=== PATIENT | male | born 1960 ===

== ENCOUNTER 2025-07-04 16:45 | Emergency (ER) | payer MEDICARE, SELFPAY ==
--- NOTE | ~2025-07-04 | CT_ITS ---
CLINICAL HISTORY: R neck pain rad LUE CT cervical spine without contrast Comparison: None provided Findings: Straightening of the cervical lordosis. Minimal grade 1 anterolisthesis at C6-7. Cervical vertebral bodies maintain normal height. No acute fracture. Craniocervical junction is intact. Multilevel degenerative disc disease most significantly involving C4-5, C5-6 and C6-7. At C4-5 mild spondylotic disc bulge and uncovertebral hypertrophy with [id number] bilateral foraminal stenosis. At C5-6 mild spondylotic disc bulge with mild right neural foraminal stenosis. At C6-7 mild spondylotic disc bulge with no significant stenosis. Prevertebral soft tissues within normal limits. Thyroid within normal limits. Lung apices are clear. IMPRESSION: 1. No acute findings. 2. Degenerative changes with [id number] bilateral foraminal stenosis at C4-5 and mild right neural foraminal stenosis at C5-6. This document has been electronically signed by: Kaia Hilario MD on 07/04/2025 20:21:23
[2025-07-04 16:49] VITALS: BP 168/88; PULSE 82; RESP 18; TEMP 36.9; O2SAT 96; BMI 27.7
--- NOTE | 2025-07-04 17:28 | ED.GENADULT ---
HPI - General Adult General Chief complaint: Neck Pain/Injury Stated complaint: Back Pain Time Seen by Provider: 07/04/25 19:22 Source: patient, family, RN notes reviewed and old records reviewed Mode of arrival: ambulatory Limitations: no limitations History of Present Illness ED Provider: Jing HORTON narrative: Patient is a 64 year old male with no known pmhx presenting today with a 2 month history of anterior neck pain that radiates down his arms into his hands. Pt states that it began on the right side and would come and go without any aggravating factors or trauma, but has now is becoming continuous and developing on his left side as well. Pt can reproduce the pain by pressing on his proximal collar bones. Denies numbness/tingling. Pt has tried Lidocaine patches and Ibuprofen with no relief of pain. Was seen at [facility] for the same pain about a month ago that thought it could be a pinched nerve, gave a medication for which the pt had no relief. Patient has full ROM of all extremities and no spinal tenderness. Related Data Previous Rx's ?Medication ?Instructions ?Recorded allopurinol 100 mg tablet 100 mg PO DAILY 90 days #90 tabs 04/29/23 cyclobenzaprine 10 mg tablet 10 mg PO TID PRN muscle spasm #20 07/04/25 tabs dexamethasone 4 mg tablet 4 mg PO BID #6 tabs 07/04/25 Allergies Allergy/AdvReac Type Severity Reaction Status Date / Time No Known Allergies Allergy Verified 07/04/25 16:52 Review of Systems Constitutional: Constitutional: Reports as per HPI, Denies chills, Denies fatigue, Denies fever(s), Denies headache(s) and Denies weakness ENT: Denies headache(s) and Denies neck pain Cardiovascular: Cardiovascular: Denies chest pain and Denies dyspnea Respiratory: Respiratory: Denies cough and Denies dyspnea Gastrointestinal: Gastrointestinal: Denies abdominal pain, Denies constipation and Denies vomiting Genitourinary: Genitourinary: Denies difficulty urinating and Denies dysuria Musculoskeletal: Musculoskeletal: Denies back pain, Denies limited range of motion, Denies neck pain, Denies numbness and Denies tingling Neurologic: Denies headache(s), Denies focal weakness, Denies numbness, Denies tingling, Denies paresthesias and Denies weakness Endocrine: Endocrine: Denies fatigue PMFSH Social History Social History Advance Directives: No Advance Directives Information Provided: No Physical Exam ED Vital Signs: Vital Signs - 24 hr 07/04/25 16:49 07/04/25 19:17 Temperature 98.5 F 97.9 F Pulse Rate 82 76 Respiratory Rate 18 18 Blood Pressure 168/88 H 137/82 Pulse Oximetry 96 96 Oxygen Delivery Method Room Air Room Air BMI result Body Mass Index 27.7 Const General: healthy appearing, comfortable, no acute distress, alert and awake Nutritional Appearance: well nourished Orientation/consciousness: patient oriented x3 HENMT Head: Yes normocephalic and Yes atraumatic Neck Neck: Yes full ROM Resp Effort & Inspection: normal respiratory effort, able to speak in complete sentences and not labored Back/Spine/Pelvis Cervical Spine: No Cervical spine tenderness Skin General skin exam: no rashes or lesions noted and elasticity normal Neuro General: patient oriented x3 and deep tendon reflexes 2+ bilaterally Cranial nerves: Yes Ability to bilaterally rotate head present and Yes Ability to bilaterally elevate shoulders present Cognition (Neuro): normal cognition Motor exam (neuro): 5/5 motor strength present throughout Extrem Other: Moving all extremities well without any obvious deformities. Tenderness to palpation of bilateral anterior neck/collarbone. General: Yes normal to inspection and Yes full ROM Right upper extremity: full ROM Left upper extremity: full ROM Course Course Course Narrative: This is a Rapid Medical Exam performed in triage by Lilly Lerma PA-C. Full HPI, ROS and PE to be performed by primary ED provider. 64-year-old male presenting to the ED c/o atraumatic right-sided neck pain radiating down RUE x5 months. Admits pain worse at night and with movement. Denies weakness, numbness, headache, vision change or loss, CVP at present PE: + mild right-sided reproducible trapezius muscle tenderness. No midline spinous tenderness. No appreciable weakness Plan: EKG, cervical spine CT Medical Decision Making Medical Decision Making MDM Narrative: 64-year-old male presents for evaluation of chronic neck pain. The patient has pain radiating to both of his arms, a CT scan of the cervical spine was ordered from triage. There was no evidence of traumatic injury. The patient has no symptoms of infection, no fever, chills. He is not an IV drug abuser. I have a low suspicion for cervical diskitis or osteomyelitis. Plan to treat the patient symptomatically and he will follow up with his outpatient providers. Differential Diagnosis Differential Diagnoses: The differential diagnosis associated with the presentation includes Cervical radiculopathy Spinal stenosis Brachial Plexus Injury Thoracic Outlet Syndrome SCM muscle Spasm Radiology Impression Discussion of test interpretation with radiology: I have reviewed the radiologist's reading. Radiologist Impression: Findings: Straightening of the cervical lordosis. Minimal grade 1 anterolisthesis at C6-7. Cervical vertebral bodies maintain normal height. No acute fracture. Craniocervical junction is intact. Multilevel degenerative disc disease most significantly involving C4-5, C5-6 and C6-7. At C4-5 mild spondylotic disc bulge and uncovertebral hypertrophy with [id number] bilateral foraminal stenosis. At C5-6 mild spondylotic disc bulge with mild right neural foraminal stenosis. At C6-7 mild spondylotic disc bulge with no significant stenosis. Prevertebral soft tissues within normal limits. Thyroid within normal limits. Lung apices are clear. IMPRESSION: 1. No acute findings. 2. Degenerative changes with [id number] bilateral foraminal stenosis at C4-5 and mild right neural foraminal stenosis at C5-6. This document has been electronically signed by: Kaia Hilario MD on 07/04/2025 20:21:23 Discharge Plan Discharge Clinical Impression: Cervical radiculopathy Patient Disposition: Home, Self-Care Instructions: Cervical Radiculopathy (ED) Additional Instructions: Your CT scan showed arthritis and cervical spine stenosis which is likely causing a pinched nerve. I recommend trying dexamethasone twice daily for the next 3 days and cyclobenzaprine as needed for muscle spasms. This may make you drowsy, do not drink alcohol or drive after taking it Follow up with your primary doctor. You may benefit from a referral to neurosurgery for a consultation Prescriptions: New dexamethasone 4 mg tablet 4 mg PO BID Qty: 6 0RF cyclobenzaprine 10 mg tablet 10 mg PO TID PRN (Reason: muscle spasm) Qty: 20 0RF No Action allopurinol 100 mg tablet 100 mg PO DAILY 90 Days Qty: 90 4RF Referrals: [facility] [Provider Group, Neurosurgery] Referral Note: chronic neck pain Print Language: Iranian
--- NOTE | 2025-07-04 17:31 | ECG_ITS ---
Test Reason : R NECK AND SHOULDER PAIN Blood Pressure : */* mmHG Vent. Rate : 83 BPM Atrial Rate : 83 BPM P-R Int : 150 ms QRS Dur : 78 ms QT Int : 370 ms P-R-T Axes : 23 -35 49 degrees QTcB Int : 434 ms Normal sinus rhythm Left axis deviation Minimal voltage criteria for LVH, may be normal variant ( R in aVL ) Abnormal ECG When compared with ECG of 01-Jun-2006 08:38, No significant changes seen Referred By: Lilly Lerma Electronically Signed By: AYUSH BENZ
[2025-07-04 19:17] VITALS: BP 137/82; PULSE 76; RESP 18; TEMP 36.6; O2SAT 96
[2025-07-04 21:06] VITALS: BP 137/82; PULSE 76; RESP 18; TEMP 36.6; O2SAT 96
--- OUTSIDE RECORDS SUMMARY | 2025-07-05 05:14 | XMS_ITS | Encounter Summary ---
Author Organization [facility] Address [address] [place] [address] Care Team Providers Care Topper Press Operator Automatic Name Role Phone Unavailable Primary Care Provider Unavailabl e Encounter Details Date Type Department Care Team (Latest Contact Info) Description 11/04/2020 Abstract [facility] CONVERSIONS Dental, Provider, DDS Social History Tobacco Use Types Packs/Day Years Used Date Smoking Tobacco: Never Assessed Sex and Gender Information Value Date Recorded Sex Assigned at Not on file Legal Sex Male 5:34 PM EDT Gender Identity Not on file Sexual Orientation Not on file documented as of this encounter Plan of Treatment Not on file documented as of this encounter Visit Diagnoses Not on filedocumented in this encounter
--- OUTSIDE RECORDS SUMMARY | 2025-07-05 05:14 | XMS_ITS | Clinical Summary ---
Author Organization [facility] Address [address] [place] [address] Phone Care Team Providers Care Creative Director Name Role Phone Luis Alberto Chambers DO Primary Care Provider [phone] Allergies No known active allergies Medications atorvastatin (LIPITOR) 20 MG tablet Take 20 mg by mouth daily. Active lisinopril (PRINIVIL,ZESTRI L) 5 MG tablet Take 5 mg by mouth daily. Active tiZANidine (ZANAFLEX) 4 MG tablet Take 1 tablet (4 mg total) by mouth every 8 (eight) hours as needed (muscle spasm). 6 tablet 03/19/2025 Active Social History Tobacco Use Types Packs/Day Years Used Date Smoking Tobacco: Never Smokeless Tobacco: Never Alcohol Use Standard Drinks/Week Comments Yes 14 (1 standard drink = 0.6 oz pu re alcohol) 2 beers per day Education Answer Date Recorded Are you interested in more education? Not on hubert e 12/11/2022 Are you concerned about learning? Not on file 12/11/2022 No 12/11/2022 No 12/11/2022 Digital Access Answer Date Recorded No 01/11/2023 No 01/11/2023 Reliable internet access at home? Not on file 01/11/2023 Device with a working camera? Not on file Intimate Partner Violence Answer Date R ecorded Are you denied basic needs s uch as food, clothing, or medical care? No 03/19/2025 In the past 12 months have y ou been in a relationship with a person who hurts, threatens, or tries to control you? No 03/19/2025 Are you denied basic needs s uch as food, clothing, or medical care? No 03/19/2025 In the past 12 months have y ou been in a relationship with a person who hurts, threatens, or tries to control you? No 03/19/2025 Sex and Gender Information Value Date Recorded Sex Assigned at Male 05/30/2018 10:26 AM EDT Legal Sex Male 9:49 PM EDT Gender Identity Male 05/30/2018 10:26 AM EDT Sexual Orientation Straight 05/30/2018 10 :26 AM EDT Last Filed Vital Signs Vital Sign Reading Time Taken Comments Blood Pressure 174/94 03/19/2025 7:54 PM EDT Pulse 69 03/19/2025 7:50 PM EDT Temperature 36.6 C (97.8 F) 03/19/2025 7:54 PM EDT Respiratory Rate 18 03/19/2025 7:54 PM EDT Oxygen Saturation 99% 03/19/2025 7:54 PM EDT Inhaled Oxygen Concentration - - Weight 76.2 kg (168 lb) 03/19/2025 4:08 PM EDT Height 167.6 cm (5' 6 ) 03/19/2025 4:08 PM EDT Body Mass Index 27.12 03/19/2025 4:08 PM EDT Plan of Treatment Health Maintenance Due Date Last Done Comments DEPRESSION SCREENING 1971 HIV ONE-TIME SCREENING (18-65 YEARS) 1977 COLOGUARD 2004 FIT TEST 2004 FOBT 2004 SIGMOIDOSCOPY 2004 VIRTUAL COLONOSCOPY 2004 PNEUMOCOCCAL VACCINES (50+ years) (1 of 1 - PCV) 2009 ZOSTER VACCINES (1 of 2) 2009 INFLUENZA VACCINE (#1) 2025 COVID-19 VACCINE (2 - season) 2025 11/22/2020 CREATININE LEVEL 03/19/2026 03/19/2025, , 05/30/2018, Additional history exists POTASSIUM LEVEL 03/19/2026 03/19/2025, 0812/2023, 05/30/2018, Additional history exists COLONOSCOPY 08/11/2027 08/11/2024 COLORECTAL CANCER SCREENING 08/11/2027 LIPID PANEL 01/30/2028 01/29/2023, 01/14, 01/29/2023 SCREENING FOR DIABETES 03/19/2028 03/19/2025, 2022 Adult Td,Tdap Booster 01/31/2032 01/30/2022, 012 RSV VACCINE (1 - 1-dose 75+ series) 2034 HEPATITIS C SCREENING Completed 05/29/2019 SMOKING STATUS SCREENING (Once After 26 Yrs) Completed 08/11/2024 HEPATITIS A VACCINES Aged Out No long er eligible based on patient's age to complete this topic HIB VACCINES Aged Out No longer eligi ble based on patient's age to complete this topic MENINGOCOCCAL VACCINES (ACWY) Aged Out No longer eligible based on patient's age to complete this topic MENINGOCOCCAL VACCINES (B) Aged Out N o longer eligible based on patient's age to complete this topic Medical Devices Not on file Procedures Procedure Name Priority Date/Time Associated Diagnosis Comments BASIC METABOLIC PANEL (BMP) STAT 03/19/2025 4:29 PM EDT ENDOSCOPY, COLON 08/11/2024 7:09 AM EST from Last 3 Months or Most Recently Relevant to Health Maintenance Results * (ABNORMAL) Basic metabolic panel (03/19/2025 4:29 PM EDT) SODIUM 141 133 - 146 mmol/L [facility] CHLORIDE 102 96 - 108 mmol/L [facility] POTASSIUM 3.9 3.3 - 5.1 mmol/L [facility] Comment:Specimen slightly he molyzed, result may be falsely elevated. CO2 24 21 - 35 mmol/L [facility] BUN 23(H) 6 - 19 mg/dL [facility] CREATININE 1.00 0.5 - 1.5 mg/dL [facility] GLUCOSE 85 70 - 99 mg/dL [facility] CALCIUM 9.7 8.4 - 10.3 mg/dL [facility] EGFR 84 >59 mL/min/1.7 3m2 [facility] Comment:Estimated glomerular filtration rate calculated using the CKD-EPI refit equation. ANION GAP 19 10 - 20 mmol/L [facility] Blood 03/19/2025 4:29 PM EDT 03/19/2025 5:01 PM EDT us Gilmar Rubio MD LAB BLOOD BKR ORDERABLES Final Result [address] [address] * ENDOSCOPY, COLON (08/11/2024 7:09 AM EST) Narrative Transcriptions Naya Marina MD - 08/11/2024 7:09 AM EST [facility] Patient Name: Phil Campbell Attending MD:: NAYA MARINA MD, Procedure Date: 08/11/2024 7:09 AM Date of : 1960 Age: 63 Admit Type: Outpatient Gender: Male Room: [place] [address] Referring MD: Luis Alberto Chambers Exam Type: Colonoscopy Indications: Screening for colorectal malignant neoplasm, Last colonoscopy: July 2010 Medications: Propofol per Anesthesia Procedure: Informed consent was obtained from the patientafter discussion of the indications, limitations, alternatives, benefits, and risks of the procedure. Risks specifically discussed include but are not limited to medication reactions, missed lesions, bleeding, perforation, or the need for emergent surgery. Throughout the procedure, the patient's blood pressure, pulse, end-tidal CO2, and oxygensaturations were monitored continuously. The Colonoscope was introduced through the anus and advanced to the cecum, identified by appendiceal orifice and ileocecal valve. The appendicealorifice and the rectum were photographed. The colonoscopywas somewhat difficult due to poor endoscopic visualization. Successful completion of theprocedure was aided by lavage. The patient tolerated the procedure well. The quality of the bowelpreparation was fair. The bowel preparation used was GoLYTELYvia split dose instruction. Complications: No immediate complications. Estimated blood loss:None. Findings: The perianal and digital rectal examinations were normal. Pertinent negatives include normal prostate (size, shape, and consistency). The retroflexed view of the distal rectum and anal verge was normal and showed no anal or rectal abnormalities. A few small-mouthed diverticula were found in the sigmoid colon. An 8 mm polyp was found in the proximal transverse colon. The polyp was semi-sessile. The polyp was removed with a cold snare. Resection and retrieval were complete. The exam was otherwise without abnormality. Retroflexion in the right colon was performed. Impression: - Preparation of the colon was fair. - The distal rectum and anal verge are normal on retroflexion view. - Diverticulosis in the sigmoid colon. - One 8 mm polyp in the proximal transverse colon, removed with a cold snare. Resected andretrieved. - The examination was otherwise normal. Recommendation: - Repeat colonoscopy in 3 years for surveillancegiven suboptimal bowel preparation. NAYA MARINA MD 08/11/2024 8:12:51 AM This report has been signed electronically. Number of Addenda: 0 Note Initiated On: 08/11/2024 7:09 AM Procedure Code(s): --- Professional --- 94625, Colonoscopy, flexible; with removal of tumor(s), polyp(s), or other lesion(s) by snare technique --- Technical --- 25445, Colonoscopy, flexible; with removal of tumor(s), polyp(s), or other lesion(s) by snare technique Diagnosis Code(s): --- Professional --- Z12.11, Encounter for screening for malignantneoplasm of colon D12.3, Benign neoplasm of transverse colon (hepatic flexure or splenic flexure) K57.30, Diverticulosis of large intestine without perforation or abscess without bleeding --- Technical --- Z12.11, Encounter for screening for malignantneoplasm of colon D12.3, Benign neoplasm of transverse colon (hepatic flexure or splenic flexure) K57.30, Diverticulosis of large intestine without perforation or abscess without bleeding CPT copyright 2021 [employer]. All rights reserved. The codes documented in this report are preliminary and upon senior materials scientist reviewmay be revised to meet current compliance requirements. Procedure Date: 08/11/2024 7:09:51 AM [address] [place] [address] Luis Alberto Chambers DO GI PROCEDURE ORDERABLES Final Re sult from Last 3 Months or Most Recently Relevant to Health Maintenance Insurance [employer] Care Teams Creative Director Relationship Specialty Start Date End Date Luis Alberto Chambers DO [address] [place] [id number] PCP - General Internal Medicine 08/11/24 Additional Source Comments The information contained in this document represents components of the legal health record. It is not the complete legal health record.[facility]
--- OUTSIDE RECORDS SUMMARY | 2025-07-05 05:14 | XMS_ITS | Clinical Summary ---
Author Organization [facility] Address [address] [place] [address] Care Team Providers Care Front End Wheel Loader Operator Name Role Phone Unknown Primary Care Provider [phone] Allergies No known active allergies Medications HYDROcodone-paul atropine (HYCODAN) syrup Take 5 mL by mouth Every 4 (four) to 6 (six) hours as needed for cough. CAUTION: May cause sedation Max Daily Amount: 30 mL 60 mL 0 09/29/2016 Active Social History Tobacco Use Types Packs/Day Years Used Date Smoking Tobacco: Never Sex and Gender Information Value Date Recorded Sex Assigned at Not on file Legal Sex Male 10:47 AM EST Gender Identity Not on file Sexual Orientation Not on file Last Filed Vital Signs Vital Sign Reading Time Taken Comments Blood Pressure 144/96 09/29/2016 11:00 AM EST Pulse 110 09/29/2016 11:00 AM EST Temperature 38.1 C (100.5 F) 09/29/2016 11:00 AM EST Respiratory Rate 16 09/29/2016 11:00 AM EST Oxygen Saturation 96% 09/29/2016 11:00 AM EST Inhaled Oxygen Concentration - - Weight - - Height - - Body Mass Index - - Plan of Treatment Health Maintenance Due Date Last Done Comments Advance Care Planning 1960 Hepatitis C Virus Screening 1960 HIV Screening 1972 DTaP/Tdap/Td Vaccines (1 - Tdap) 1978 Colonoscopy 2004 Pneumococcal Vaccines 50+ (1 of 1 - PCV) 2009 Zoster (Shingles) Vaccine (1 of 2) 2009 Influenza Vaccine 03/16/2025 COVID-19 Vaccine (2023-2 5 season) 2025 RSV Vaccine 50 years and old er and Patients (1 - 1-dose 75+ series) 2034 Hepatitis B Vaccines Aged Out No long er eligible based on patient's age to complete this topic Insurance [facility] [employer] , [address] [place] [address] Care Teams Front End Wheel Loader Operator Relationship Specialty Start Date End Date Unknown Unknow Provider Address PCP - General 09/29/16
--- OUTSIDE RECORDS SUMMARY | 2025-07-05 05:14 | XMS_ITS | Clinical Summary ---
Author Organization [facility] Address [address] [place] [address] [address] [place] [address] Care Team Providers Care Freight Caller Name Role Phone Unavailable Primary Care Provider Unavailabl e Social History Tobacco Use Types Packs/Day Years Used Date Smoking Tobacco: Never Assessed Sex and Gender Information Value Date Recorded Sex Assigned at Not on file Legal Sex Male 5:34 PM EDT Gender Identity Not on file Sexual Orientation Not on file Plan of Treatment Health Maintenance Due Date Last Done Comments CT Colonography 1960 Colonoscopy 1960 Colorectal Cancer Screening 1960 Depression Screening 1960 FIT DNA/Cologuard 1959 FIT 1959 FOBT 1960 Lipid Panel 1960 Sigmoidoscopy 1960 Alcohol/Substance Use Screening 1971 Tobacco Screening 1971 DTaP/Tdap/Td Vaccines (1 - Tdap) 1978 Pneumococcal Vaccine: 50+ Ye ars (1 of 1 - PCV) 2009 Zoster Vaccines (1 of 2) 2009 COVID-19 Vaccine (2 - 2024-2 6 season) 2025 11/22/2020 Influenza Vaccine (#1) 2025 RSV Patients and Pa tients Aged 60 years or older (1 - 1-dose 75+ series) 2034 HIB Vaccines Aged Out No longer eligi ble based on patient's age to complete this topic HPV Vaccines Aged Out No longer eligi ble based on patient's age to complete this topic Hepatitis A Vaccines Aged Out No long er eligible based on patient's age to complete this topic Hepatitis B Vaccines Aged Out No long er eligible based on patient's age to complete this topic IPV Vaccines Aged Out No longer eligi ble based on patient's age to complete this topic Meningococcal B Vaccine Aged Out No l onger eligible based on patient's age to complete this topic Meningococcal Vaccine Aged Out No breezy douglas eligible based on patient's age to complete this topic RSV under 20 months Aged Out No longe r eligible based on patient's age to complete this topic Rotavirus Vaccines Aged Out No longer eligible based on patient's age to complete this topic
--- OUTSIDE RECORDS SUMMARY | 2025-07-05 05:14 | XMS_ITS | Encounter Summary ---
Author Organization [facility] Address [address] [place] [id number] Care Team Providers Care Bi Architect Name Role Phone Unavailable Primary Care Provider Unavailabl e Encounter Details Date Type Department Care Team (Latest Contact Info) Description 04/27/2019 Abstract [facility] CONVERSIONS Dental, Provider, DDS Social [...]
--- OUTSIDE RECORDS SUMMARY | 2025-07-05 05:14 | XMS_ITS | Encounter Summary ---
Author Organization [facility] Address [address] [place] [id number] Care Team Providers Care Business Improvement Manager Name Role Phone Unavailable Primary Care Provider Unavailabl e Encounter Details Date Type Department Care Team (Latest Contact Info) Description 09/15/2018 Abstract [facility] CONVERSIONS Dental, Provider, DDS Social [...]
--- OUTSIDE RECORDS SUMMARY | 2025-07-05 05:14 | XMS_ITS | Encounter Summary ---
Author Organization [facility] Address [address] [place] [address] Care Team Providers Care Culled Fruit Packer Name Role Phone Unavailable Primary Care Provider Unavailabl e Encounter Details Date Type Department Care Team (Latest Contact Info) Description 05/06/2020 Abstract [facility] CONVERSIONS Dental, Provider, DDS Social [...]
--- OUTSIDE RECORDS SUMMARY | 2025-07-05 05:14 | XMS_ITS | Encounter Summary ---
Author Organization [facility] Address [address] [place] [address] Phone Care Team Providers Care Director [employer] Name Role Phone Shania Ndiaye MD Primary Care Provider [phone] Remington Harley MD Unavailable Mark Renee MD Primary Care Provider [phone] Mark Renee MD Unavailable [phone] Pcp, Unknown Primary Care Provider UnavailLuis Alberto Gruber DO Primary Care Provider [phone] Encounter Details Date Type Department Care Team (Latest Contact Info) Description 09/16/2020 Transcribe Orders Virtual Department [address] [place] [address] Iqra De Leon CNP [address] [place], [place] [id number] [email or web address] Cough (Primary Dx); Sore throat Social History Tobacco Use Types Packs/Day Years Used Date Smoking Tobacco: Never Smokeless Tobacco: Never Alcohol Use Standard Drinks/Week Comments Yes 14 (1 standard drink = 0.6 oz pu re alcohol) 2 beers per day Sex and Gender Information Value Date Recorded Sex Assigned at Male 05/30/2018 10:26 AM EDT Legal Sex Male 9:49 PM EDT Gender Identity Male 05/30/2018 10:26 AM EDT Sexual Orientation Straight 05/30/2018 10 :26 AM EDT documented as of this encounter Plan of Treatment Not on file documented as of this encounter Results * COVID-19 PCR Order (09/20/2020 7:47 AM EST) COVID Testing Status PATIENT DID NOT ARRIVE FOR SCHEDULED TESTING. [facility] Comment:PROVIDER TO RESCHEDU LE NECESSARY. Symptomatic? YES [facility] 09/20/2020 7:47 AM EST 09/20/2020 9:00 PM EST us Iqra Yuridia Erie [facility] GENERAL ORDERABLES Final Result [facility] [address] [place] [address] documented in this encounter Visit Diagnoses Diagnosis Cough- Primary Sore throat Acute pharyngitis documented in this encounter Additional Health Concerns Infection Onset Date Last Indicated Resolved Time CoV-Risk 09/16/2020 09/20/2020 09/26/2020 1:24 AM EST MDR-GN 02/22/2022 02/22/2022 03/12/2023 1:42 AM EDT documented as of this encounter Care Teams Director [employer] Relationship Specialty Start Date End Date Shania Ndiaye MD [address] [facility] [address] [place] [address] PCP - General Pediatrics 02/11/18 02/22/22 Mark Renee MD [address] [place] [phone] PCP - General Family Medicine 02/23/22 03/29/24 Pcp, Unknown PCP - General 03/30/24 08/10/24 Luis Alberto Chambers DO [address] [place] [id number] PCP - General Internal Medicine 08/11/24 Remington Harley MD [address] [facility] [address] [place] [phone] [email or web address] Insurance Assigned Provider 08/24/20 09/21/20 Mark Renee MD [address] [place] [id number] [email or web address] Insurance Assigned Provider 05/23/22 04/24/23 documented as of this encounter Additional Source Comments The information contained in this document represents components of the legal health record. It is not the complete legal health record.[facility]
--- OUTSIDE RECORDS SUMMARY | 2025-07-05 05:14 | XMS_ITS | Encounter Summary ---
Author Organization [facility] Address [address] [place] [address] Phone Care Team Providers Care Dinkey [employer] Operator Name Role Phone Luis Alberto Chambers DO Primary Care Provider [phone] Encounter Details Date Type Department Care Team (Late st Contact Info) Description 08/11/2024 Procedure Pass [facility] Endoscopy Admitting Dept Virtual Department [address] [place] [address] Social History Tobacco Use Types Packs/Day Years [...] as food, clothing, or medical care? No 08/11/2024 In the past 12 months have y ou been in a relationship with a person who hurts, threatens, or tries to control you? No 08/11/2024 Are you denied basic needs s uch as food, clothing, or medical care? No 08/11/2024 In the past 12 months have y ou been in a relationship with a person who hurts, threatens, or tries to control you? No 08/11/2024 Sex and Gender Information Value Date Recorded Sex Assigned at Male 05/30/2018 10:26 AM EDT Legal Sex Male 9:49 PM EDT Gender Identity Male 05/30/2018 10:26 AM EDT Sexual Orientation Straight 05/30/2018 10 :26 AM EDT documented as of this encounter Plan of Treatment Not on file documented as of this encounter Visit Diagnoses Not on filedocumented in this encounter Care Teams [employer] Relationship Specialty Start Date End Date Luis Alberto Chambers DO [address] [place] [address] PCP - General Internal Medicine 08/11/24 documented as of this encounter Additional Source Comments The information contained in this document represents components of the legal health record. It is not the complete legal health record.[facility]
== END 2025-07-04 21:07 | disposition home or self-care (01) ==
PROVIDERS: Emergency Provider Emergency Medicine
DX: M54.12 Radiculopathy, cervical region (principal); M54.2 Cervicalgia; M25.511 Pain in right shoulder
CPT/HCPCS: 72125; 93005; 99283

== ENCOUNTER → 2025-07-04 17:31 | Outpatient (BNV) | payer MEDICARE, SELFPAY | PROVIDERS: Emergency Provider Emergency Medicine; Visit Provider Specialist | DX: M47.812 Spondylosis without myelopathy or radiculopathy, cervical region (principal); M99.61 Osseous and subluxation stenosis of intervertebral foramina of cervical region | CPT/HCPCS: 72125 ==

== ENCOUNTER → 2025-07-04 17:31 | Outpatient (BNV) | payer MEDICARE, SELFPAY | PROVIDERS: Emergency Provider Emergency Medicine; Visit Provider Internal Medicine | DX: R94.31 Abnormal electrocardiogram [ECG] [EKG] (principal); M54.2 Cervicalgia; M25.511 Pain in right shoulder | CPT/HCPCS: 93010 ==